=== PATIENT | male | born 1970 | race Caucasian/White ===

== ENCOUNTER 2018-10-06 17:23 | Emergency (ER) | payer MEDICARE, OTHER ==
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
[2018-10-06] MEDS ORDERED: NS(*) 0.9% 1000 ML BAG 1,000 ML IV ONE (17:53)
[2018-10-06 18:08] LABS: PLATELET COUNT, AUTOMATED 262 K/uL (150-450)
--- NOTE | 2018-10-06 18:08 | EKG ---
FACILITY: [facility] PATIENT NAME: ANJALI TREJO : [id number] MR: [id number] V: [id number] EXAM DATE: ORDERING PHYSICIAN: BRIA JONES TECHNOLOGIST: SHIRLEY Marin Reason : CHEST TRAUMA Blood Pressure : / mmHG Vent. Rate : 085 BPM Atrial Rate : 085 BPM P-R Int : 210 ms QRS Dur : 100 ms QT Int : 350 ms P-R-T Axes : 052 023 031 degrees QTc Int : 416 ms Sinus rhythm with 1st degree AV block Otherwise normal ECG No previous ECGs available Confirmed by SREE PICKARD ([id number]) on 10/06/2018 8:03:55 PM Referred By: KATHI Confirmed By:SREE PICKARD
[2018-10-06 18:17] LABS: INR 1.04
[2018-10-06] MEDS ORDERED: IOPAMIDOL 76% 100 ML INFUS BTL 100 ML ONE (18:17)
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
[2018-10-06] MEDS ORDERED: ALFU10TA28 PO (18:52)
[2018-10-06] MEDS ORDERED: CLOT15CR63 TP (18:52)
[2018-10-06] MEDS ORDERED: ESOM20SU2 PO (18:52)
[2018-10-06] MEDS ORDERED: EPIN0.3P3 IM (18:52)
[2018-10-06] MEDS ORDERED: AMPH20TA18 PO (18:52)
[2018-10-06] MEDS ORDERED: FOLI-68 PO (18:52)
[2018-10-06] MEDS ORDERED: ALPR-429 PO (18:52)
[2018-10-06] MEDS ORDERED: FEXO-67 PO (18:52)
[2018-10-06] MEDS ORDERED: CHOL10005 PO (18:52)
[2018-10-06] MEDS ORDERED: FLUT1DIS29 IH (18:52)
[2018-10-06] MEDS ORDERED: ARIP5TAB57 PO (18:52)
[2018-10-06] MEDS ORDERED: DULO60CA56 PO (18:52)
[2018-10-06 19:00] VITALS: BP 133/88
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
[2018-10-06] MEDS ORDERED: HYDR-385 PO (19:27)
== END 2018-10-06 20:03 | disposition home or self-care (01) ==
LOC: ER 17:29
DX: S22.41XA Multiple fractures of ribs, right side, initial encounter for closed fracture (principal); V86.52XA Driver of snowmobile injured in nontraffic accident, initial encounter
CPT/HCPCS: 71045; 71260; 74177; 81001; 82150; 83605; 83690; 85025; 85610; 85730; 93005; 96360; 99284; J7030; Q9967; 82040; 82247; 82310; 82374; 82435; 82565; 82947; 84075; 84132; 84155; 84295; 84450; 84460; 84520